=== PATIENT | male | born 1980 | race Caucasian/White ===

== ENCOUNTER 2019-04-06 10:30 | Emergency (ER) | payer OTHER ==
[~2019-04-06] VITALS: Ht 182.9 cm; Wt 117.9 kg
[2019-04-06] MEDS ORDERED: Sudogest30 MG PO ×3 (12:10→12:34)
[2019-04-06] MEDS ORDERED: Cheratussin AC118 ML PO ×3 (12:10→12:34)
[2019-04-06] MEDS ORDERED: Flonase 0.05% N16 GM ×2 (12:10→12:34)
[2019-04-06] MEDS ORDERED: ALBU90OI61 INH ×2 (12:10→12:34)
[2019-04-06] MEDS ORDERED: METPHE10 PO (12:15)
== END 2019-04-06 12:43 | disposition home or self-care (01) ==
LOC: ER 10:30
DX: J06.9 Acute upper respiratory infection, unspecified (principal); Z87.891 Personal history of nicotine dependence
CPT/HCPCS: 71046; 99283-25